=== PATIENT | female | born 1980 | race Caucasian/White ===

== ENCOUNTER 2024-08-25 08:30 | Outpatient (CLI) | payer MEDICAID, SELFPAY ==
--- NOTE | 2024-08-25 08:38 | US_ITS ---
WS: [id number] Exam: US breast BI complete [id number] Date/Time of Exam: 08/25/2024 9:34 AM Reason For Exam: NIPPLE DISCHARGE Complete bilateral breast ultrasound was performed. There was no sign of suspicious solid mass or nodule in either breast. No cysts were identified. No sign of obvious ductal dilatation. Recommendations: Yearly screening mammography. BI-RADS Category 1. US/US breast BI complete 21654 IMPRESSION: 1. No suspicious ultrasound finding in either breast.
--- NOTE | 2024-08-25 08:38 | MM_ITS ---
WS: [id number] VIEWS: MLO, CC, and ML views both breasts. 3D digital tomosynthesis is also included in this exam. No previous exams. Findings: The breasts are heterogeneously dense, which may obscure small masses. No suspicious mass, tumor calcification or architectural distortion. Bilateral breast ultrasound recommended for further work-up. MM/MM diag BI tomosynthesis [id number] Impression: BI-RADS: 0 - Incomplete: Need additional imaging evaluation FOLLOW-UP: See Report This mammogram was also analyzed by the Computer Aided Detection System R2 Imag e Procedure Writer.
== END 2024-08-25 08:31 | disposition home or self-care (01) ==
LOC: RAD 08:31
PROVIDERS: Visit Provider Nurse Practitioner
DX: N64.52 Nipple discharge (principal); R92.333 Mammographic heterogeneous density, bilateral breasts
CPT/HCPCS: 76641; 77062; G0279

== ENCOUNTER → 2024-10-11 14:25 | Outpatient (BNVA) | payer MEDICAID, SELFPAY | PROVIDERS: PCP Registered Nurse; Visit Provider Student in an Organized Health Care Education/Training Program | DX: N60.49 Mammary duct ectasia of unspecified breast (principal) | CPT/HCPCS: 99204 ==

== ENCOUNTER → 2025-01-28 09:12 | Outpatient (BNVA) | payer MEDICAID, SELFPAY | PROVIDERS: PCP Registered Nurse; Visit Provider Student in an Organized Health Care Education/Training Program | DX: Z09 Encounter for follow-up examination after completed treatment for conditions other than malignant neoplasm (principal); N60.49 Mammary duct ectasia of unspecified breast | CPT/HCPCS: 99213 ==